=== PATIENT | male | born 1960 | race Caucasian/White ===

== ENCOUNTER 2016-09-10 10:25 | Day surgery (SDC) | payer BC ==
[2016-09-07 17:22] VITALS: BMI 29.4
[~2016-09-10 10:25] MED LIST: LACTATED RINGERS 1,000 ML IV SCH; LIDOCAINE 1% 20 ML VIAL (10MG/ML) FOR IV START INTRADERMA PRN
[2016-09-10 11:17] VITALS: TEMP 97.6
[2016-09-10] MEDS ORDERED: PROPOFOL 10 MG/ML 20 ML VIAL IV ONE (11:27)
[2016-09-10] MEDS ORDERED: LIDOCAINE 1% INJ 10MG/ML (20 ML MDV) ONE (11:27)
--- NOTE | 2016-09-10 11:48 | P.PCN ---
Date of Procedure: 09/10/16 Procedure(s) Performed: BRIEF HISTORY: Patient is a 55-year-old, pleasant, white male, scheduled for an upper endoscopy as a part of evaluation of intermittent dysphagia to solids. He recently had an episode of acute food dysphagia that lasted for 10 minutes and resolved about 2 weeks ago. His and scheduled for an upper endoscopy as a possible dilation today.. PROCEDURE PERFORMED: Esophagogastroduodenoscopy and dilation. PREOPERATIVE DIAGNOSIS: Intermittent dysphagia to solids. IV sedation per anesthesia. PROCEDURE: After informed consent was obtained, the patient was brought into the endoscopy unit. IV conscious sedation was administered by Anesthesia under continuous monitoring. Initially the Olympus GIF-140 video endoscope was inserted into the mouth. Esophagus intubated without any difficulty. It was gradually advanced into the stomach and duodenum and carefully examined. The bulb and the second part of the duodenum appeared normal. The scope at this time was withdrawn to the stomach, adequately insufflated with air, and upon careful examination, mucosa of the antrum, body, cardia and the fundus appeared normal. The scope was then withdrawn into the esophagus. Small hiatal hernia noted. The GE junction was located at 35 cm from the incisors. There was a distal esophageal Schatzki's ring identified which did not impede the passage of the scope. At this time and proceed with a balloon dilation of the distal esophageal Schatzki's ring initially with 15 mm and subsequently to 16.5 and 18 mm TTS balloon sequentially for total of 2 minutes. The rest of the esophagus appeared normal. There were no erosions or ulcerations seen and the patient tolerated the procedure well. IMPRESSION: 1. Distal esophageal Schatzki's ring status post balloon dilation using 15-18 mm TTS balloon as described above. 2. Small hiatal hernia. RECOMMENDATIONS: The findings of this examination were discussed with the patient as well as his family. He was advised to be on clear liquid diet for lunch today and soft diet for dinner today. He will continue with Prilosec 20 mg being followed in reflux measures.
[2016-09-10 11:53] VITALS: RESP 18
[2016-09-10 12:15] VITALS: BP 121/76; PULSE 65
== END 2016-09-10 12:48 | disposition home or self-care (01) ==
LOC: ORWHC2ENDO 10:25
PROVIDERS: ATTEND Internal Medicine Gastroenterology
DX: K22.2 Esophageal obstruction (principal); K44.9 Diaphragmatic hernia without obstruction or gangrene; K21.9 Gastro-esophageal reflux disease without esophagitis; Z79.899 Other long term (current) drug therapy
CPT/HCPCS: 43249; J2001; J2704; C1726; 99153